=== PATIENT | female | born 1945 | race Caucasian/White ===

== ENCOUNTER → 2018-11-19 | Outpatient (CLI) | payer MEDICARE, BC ==
--- NOTE | 2018-11-19 13:19 | XR ---
EXAMINATION TYPE: XR foot complete RT DATE OF EXAM: 11/19/2018 COMPARISON: NONE HISTORY: 72-year-old female previous sprain injury in September, pain and bruising, history of bunion cristian maddie TECHNIQUE: 3 views FINDINGS: Prior bunionectomy and hallux valgus repair. Single cortical screw fixation within the first metatars al. There is also metallic wire along the first proximal phalanx. There is moderate degenerative kaba ge with marginal spurring and subchondral sclerosis of the first MTP joint. Mild soft tissue swelling overlying the medial aspect of the first MTP joint. Os peroneum demonstrated. Tiny plantar calcaneal spur. IMPRESSION: Prior bunionectomy and hallux valgus repair. 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
== END | disposition home or self-care (01) ==
LOC: RADXRMAIN 11:43
PROVIDERS: ATTEND Podiatrist Foot Surgery
DX: M19.071 Primary osteoarthritis, right ankle and foot (principal); M20.11 Hallux valgus (acquired), right foot; M77.31 Calcaneal spur, right foot